=== PATIENT | male | born 1975 | race Caucasian/White ===

== ENCOUNTER 2018-03-28 14:11 | Emergency (ER) | payer OTHER, MEDICAID ==
--- NOTE | 2018-03-28 14:26 | EDPHY ---
H & P Time Seen by Provider: 03/28/18 14:15 HPI/ROS: CHIEF COMPLAINT: Medical clearance for mcfp, chronic IV drug use HISTORY OF PRESENT ILLNESS: The patient presents to the ED for medical clearance for mcfp. He has a history of chronic IV drug use. The patient has 2 ulcerated lesions on his left forearm prompting his visit to the ED. The patient reports he has a history of abscesses in the past. He denies any fever. He denies significant pain in his upper lower extremities. The patient does have some injection drug [place] along his legs bilaterally also. The patient takes no regular medications. He does not have a primary care provider. He denies additional acute complaints. REVIEW OF SYSTEMS: A comprehensive 10 point review of systems is otherwise negative aside from elements mentioned in the history of present illness. Source: Patient - Personal History Tetanus Vaccine Date: <10 years - Medical/Surgical History Hx Asthma: No Hx Chronic Respiratory Disease: No Hx Diabetes: No Hx Cardiac Disease: No Hx Renal Disease: No Hx Cirrhosis: No Hx Alcoholism: No Hx HIV/AIDS: No Hx Splenectomy or Spleen Trauma: No Other PMH: Chronic low back pain, kidney stone lithotripsy 09/13, IVDA. PE - Social History Smoking Status: Current every day smoker - Physical Exam Exam: General Appearance: Disheveled, no acute distress Eyes: Pupils equal and round no pallor or injection ENT, Mouth: Mucous membranes moist Respiratory: There are no retractions, lungs are clear to auscultation Cardiovascular: Regular rate and rhythm Gastrointestinal: Abdomen is soft and nontender, no masses, bowel sounds normal Neurological: 5/5 strength noted all 4 extremities Skin: Warm and dry, no rashes Musculoskeletal: No clinical evidence of a deep space abscess, myositis or necrotizing fasciitis Extremities: Stigmata of old in recent IV drug use, 2 shallow ulcerations noted to the left forearm without significant fluctuance. Psychiatric: Patient is oriented X 3, there is no agitation Allergies/Adverse Reactions: No Known Allergies Allergy (Unverified 01/17/16 22:20) Home Medications: Medication Instructions Recorded Amphet Asp and D/Amphet [Adderall 10 mg PO BID@05,12 08/27/14 10 MG (*)] Omeprazole [Prilosec] 40 mg PO DAILY 08/27/14 QUEtiapine FUMARATE [Seroquel 50 50 mg PO HS 08/27/14 mg (*)] oxyCODONE IR [Oxycodone Ir (*)] 5 - 10 mg PO Q4 PRN #20 tab 09/07/14 Cephalexin [Keflex] 500 mg PO Q6H #28 cap 01/17/16 Sulfamethox/Tmp 800/160 mg 1 tab PO BID@1000,2200 #14 tab 01/17/16 [Bactrim Ds] Medical Decision Making ED Course/Re-evaluation: Patient presents to the ED with multiple small ulcerations from IV drug use noted to the left forearm. The patient has no fluctuance or abscess. There is no clinical evidence of a septic arthritis or necrotizing fasciitis. The patient will be discharged from the emergency department with a prescription for Bactrim. He has been medically cleared for mcfp. Patient is advised to return to the emergency department for high fever, increasing erythema, discharge or swelling. Departure - Departure Disposition: Home, Routine, Self-Care Clinical Impression: Cellulitis Qualifiers: Site of cellulitis of extremity: upper extremity Laterality: left Condition: Good Instructions: Cellulitis (ED) Additional Instructions: 1. Please take antibiotics as directed. 2. Return to the ED for increasing pain, redness, swelling. 3. You have been given the contact number [facility] if you desire assistance with narcotic dependence. Referrals: [facility] [Outside] - As per Instructions
[2018-03-28 14:28] VITALS: BP 152/91
== END 2018-03-28 14:42 | disposition home or self-care (01) ==
DX: L03.114 Cellulitis of left upper limb (principal)